=== PATIENT | female | born 1950 | race Caucasian/White ===

== ENCOUNTER 2017-11-08 15:36 | Emergency (ER) | payer MEDICARE ==
[2017-11-08] MEDS ORDERED: HYDROCODONE/ACETAMINOPHEN 10/325 MG TAB ONE (16:37)
[2017-11-08] MEDS ORDERED: LIDOCAINE HCL 1% 20 ML VIAL ONE (16:41)
[2017-11-08] MEDS ORDERED: OCTYL 2-CYANOACRYLATE 1 EACH TP ONE (16:56)
== END 2017-11-08 20:03 | disposition home or self-care (01) ==
LOC: EDH 15:36
DX: S52.572A Other intraarticular fracture of lower end of left radius, initial encounter for closed fracture (principal); S01.81XA Laceration without foreign body of other part of head, initial encounter; S49.92XA Unspecified injury of left shoulder and upper arm, initial encounter; S49.91XA Unspecified injury of right shoulder and upper arm, initial encounter; S79.912A Unspecified injury of left hip, initial encounter; Z98.890 Other specified postprocedural states; W17.89XA Other fall from one level to another, initial encounter; Y93.89 Activity, other specified; Y92.89 Other specified places as the place of occurrence of the external cause; Y99.8 Other external cause status
CPT/HCPCS: 12011; 25605; 70450; 73110; 73502